=== PATIENT | female | born 1985 | race Caucasian/White ===

== ENCOUNTER → 2020-06-14 09:46 | Outpatient (CLI) | payer OTHER, SELFPAY ==
--- NOTE | 2020-06-14 | DI.US.S_ITS ---
PROCEDURE: US PELVIC COMPLETE INDICATIONS: ABNORMAL BLEEDING TECHNIQUE: Real-time scanning was performed of the pelvic organs, with image documentation. Additional endovaginal scanning was necessary due to incomplete visualization of the adnexal and endometrial structures by transabdominal scanning. COMPARISON: None. FINDINGS: Transabdominal scanning: Limited scanning through the kidneys shows no hydronephrosis. No pathologic free abdominal or pelvic fluid. Endovaginal scanning: Uterus: Uterus is normal in size at 8.7 x 5.4 x 4.1 cm. The endometrium measures 7 mm in combined thickness. Incidental note is made of nabothian cysts. There is a 1.9 x 1.6 x 1.6 cm intramural fibroid seen posteriorly. Ovaries: The right ovary measures 3.6 x 1.5 x 1.6 cm. The left ovary measures 3.5 x 2.2 x 1.4 cm. The ovaries have a normal sonographic appearance. Less than 12 follicles can be seen involving each ovary. No adnexal masses are seen. IMPRESSION: Normal pelvic ultrasound, without an imaging explanation found the patient's presenting symptoms. A 1.9 cm intramural fibroid is noted posteriorly. Dictated by: Mango De La Rosa M.D. on 06/14/2020 at 10:20 Approved by: Mango De La Rosa M.D. on 06/14/2020 at 10:21
== END ==
PROVIDERS: PCP Registered Nurse; Referring Provider Registered Nurse; Visit Provider Registered Nurse
DX: N93.9 Abnormal uterine and vaginal bleeding, unspecified (principal); D25.1 Intramural leiomyoma of uterus
CPT/HCPCS: 76830; 76856